=== PATIENT | female | born 1995 | race Two or more races ===

== ENCOUNTER 2020-07-26 23:05 | Emergency (ER) | payer OTHER ==
[~2020-07-26] VITALS: Ht 157.5 cm; Wt 59.8 kg
--- NOTE | 2020-07-27 00:02 | NUR ---
Pt states feeling anxious and depressed. Pt states having almost a panic attack tonight at home. Pt states having a rapid HR at times. Pt denies SI. Warm blanket given, EKG done per order. UA sent. Friend at bedside. Will monitor.
[2020-07-27] MEDS ORDERED: LORazepam 1MG TABLET ONE (00:47)
[2020-07-27] MEDS ORDERED: LORazepam 1MG TABLET PO ONE ×2 (01:00)
[2020-07-27 01:06] VITALS: BP 120/76
--- NOTE | 2020-07-27 01:07 | NUR ---
VSS. PT DENIES ANY PAIN. STATES FEELING MUCH BETTER. WILL UPDATE PROVIDER, PLAN TO DC HOME.
== END 2020-07-27 01:15 | disposition home or self-care (01) ==
LOC: ED 07-27 01:00
DX: F41.1 Generalized anxiety disorder (principal); R06.4 Hyperventilation; R00.0 Tachycardia, unspecified; R07.89 Other chest pain
CPT/HCPCS: 81025; 93005; 99284